=== PATIENT | male | born 1970 | race Caucasian/White ===

== ENCOUNTER → 2017-05-04 | Outpatient (CLI) | payer BC ==
--- NOTE | 2017-05-05 08:06 | CT ---
EXAMINATION TYPE: CT facial bones w con DATE OF EXAM: 05/04/2017 COMPARISON: 03/21/2015 HISTORY: Facial pressure and pain. History of sinus surgery CT DLP: 641.6 mGycm Automated exposure control for dose reduction was used. CONTRAST: CT scan of the facial bones is performed with IV Contrast, patient injected with 100 mL of Omnipaque 300. TECHNIQUE: CT scan of the sinuses is performed with contrast, axial images are obtained, coronal refo rmatted images are also reviewed. FINDINGS: There is bilateral medial maxillary antrectomy and partial ethmoidectomy. Air-fluid level r ight maxillary sinus may reflect acute sinusitis. Superimposed mucosal thickening bilaterally right g reater than left. Thickening and opacification remaining superior anterior ethmoid air cells. Frontal sinuses well aerated as is the sphenoid sinus. Mastoid air cells are well-aerated. Nasal septum midl ine. No bony destructive process identified. Visualized intracranial structures grossly unremarkable. IMPRESSION: 1. Postoperative changes as discussed. 2. Suspect acute right-sided sinusitis with air-fluid level noted. 3. Superimposed chronic sinusitis.
== END | disposition home or self-care (01) ==
LOC: RADCTMAIN 19:19
PROVIDERS: ATTEND Otolaryngology
DX: J32.9 Chronic sinusitis, unspecified (principal)
CPT/HCPCS: 70487; Q9967